=== PATIENT | female | born 1950 | race Caucasian/White ===

== ENCOUNTER → 2018-01-26 | Day surgery (SDC) | payer OTHER ==
--- NOTE | 2018-01-26 15:17 | OP ---
DATE OF OPERATION: 01/26/2018 PREOPERATIVE DIAGNOSIS: Abnormal left mammography. POSTOPERATIVE DIAGNOSIS: Abnormal left mammography. PROCEDURE: Left stereotactic needle biopsy with clips. SURGEON: Nichol Kyle MD ANESTHESIA: Local. COMPLICATIONS: None. This was a sterile procedure. Patient presented with a screening mammography that noted a palpable mass in the inner left breast that I had already biopsied under ultrasound but also noted a cluster microcalcification seen best on the CC view directly behind the nipple on the true lateral; it was difficult to discern. The procedure of stereotactic needle biopsy was discussed including the need for a clip. PROCEDURE IN DETAIL: The patient was brought to [facility] in [place], laid prone on the [place] table. Using the , it was difficult to completely verify the site of the calcifications because there were several loosely clustered calcifications. I did find an area where I did a stereo pair and was able to see. The area was cleansed with Betadine and anesthetized with 1% lidocaine. A 10-gauge Suros device was inserted into the breast and several cores from this area were obtained. A specimen radiograph showed some cores with scattered calcifications. This was sent to Pathology for permanent section. A clip was applied in the area. Hemostasis assured with direct pressure. Steri-Strips were used to close the incision. A post-biopsy mammogram showed the clip to be in the correct location. I do not see the calcifications that originally were seen on the mammography on CC view. She tolerated the procedure well, left the breast imaging center in good condition. Zeferino [id number]
--- NOTE | 2018-01-27 15:58 | PATH ---
Surgical Pathology Report Patient Name: WALLACE DOYLE [facility]. Rec. #: [id number] /Age/Gender: 1950 (Age: 67) / F Account: [id number] Location: [facility] Taken: 01/26/2018 Received: 01/26/2018 Reported: 01/27/2018 Physicians: Nichol Kyle M.D. Specimen(s) Received A: LEFT BREAST SPECIMEN WITH CALCIFICATION B: LEFT BREAST SPECIMEN WITHOUT CALCIFICATIONS Clinical History Nonpalpable lesion Mammographic findings: Microcalcification, suspicious Final Diagnosis A. 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 B. 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 Electronically Signed Rachael Padron M.D. Gross Description A. Received in formalin, labeled "left breast with calcifications," are 6 seymour-yellow, cylindrical portions of fibroadipose tissue ranging from 0.8-3.0 cm. in length and averaging 0.2 cm. in diameter. The specimen is submitted in toto in one cassette. B. Received in formalin labeled "left breast without calcifications," are 2 seymour-yellow, cylindrical portions of fibroadipose tissue measuring 2.2 and 2.8 cm in length and averaging 0.3 cm in diameter. The specimens are submitted in toto in one cassette. Time to formalin fixation: 7 minutes Total formalin fixation time: Approximately 10 hours. 01/26/201801/26/2018
== END | disposition home or self-care (01) ==
LOC: FMAMMOTONE 11:07
PROVIDERS: ATTEND Surgery
PROC: 0HBU3ZX Excision of Left Breast, Percutaneous Approach, Diagnostic (ICD-10-PCS; principal; 2018-01-26)
DX: N60.32 Fibrosclerosis of left breast (principal); R92.8 Other abnormal and inconclusive findings on diagnostic imaging of breast; N64.89 Other specified disorders of breast
CPT/HCPCS: 19081; 87899; 88305-TC; A4648